=== PATIENT | female | born 1965 | race Caucasian/White ===

== ENCOUNTER → 2018-09-30 08:10 | Outpatient (CLI) | payer BC, SELFPAY ==
--- NOTE | 2018-09-30 08:14 | MM_ITS ---
MM Dig screening mamm BI w/CAD CAD Screening COMPARISON: None, previous mammograms are not available for review INDICATION: There is no personal or family history of breast cancer TECHNIQUE: Standard CC and MLO images were obtained. R2 CAD reviewed. FINDINGS: The breasts are composed primarily of fat with very minimal scattered fiber glandular densities in each breast. There are tiny benign-appearing nodular densities in each breast likely microcysts. There is no suspicious lesion in either breast and there are no suspicious microcalcifications. There are couple benign-appearing calcifications in each breast. IMPRESSION: Fatty type breast parenchyma no suspicious lesion seen BI-RADS Category: 2 Benign Finding(s) RECOMMENDED FOLLOW-UP: 1YR - 1 YEAR FOLLOW-UP (A letter has been sent to the patient regarding results of the study.)
== END ==
PROVIDERS: PCP Obstetrics & Gynecology; Visit Provider Obstetrics & Gynecology
DX: Z12.31 Encounter for screening mammogram for malignant neoplasm of breast (principal)
CPT/HCPCS: 77067

== ENCOUNTER → 2020-06-28 07:45 | Outpatient (CLI) | payer BC, SELFPAY ==
--- NOTE | 2020-06-28 07:45 | MM_ITS ---
PROCEDURE: MM DIG SCREENING MAMM BI W/CAD Digital Breast Tomosynthesis Included CLINICAL INDICATION: screening There is no personal or family history of breast cancer. COMPARISON: MG DIG MAMM-SCREEN MELISSA from 09/30/2018 TECHNIQUE: Standard CC and MLO images and 3D Tomosynthesis was obtained. R2 CAD reviewed. FINDINGS: Breasts are composed primarily of with minimal scattered fibroglandular densities each breast. There are stable small benign-appearing nodular densities in each breast. Are couple of benign-appearing microcalcifications just deep to the nipple right breast. No suspicious lesion in either breast no suspicious microcalcifications. IMPRESSION: Fatty type breast parenchyma with no suspicious lesions seen BI-RAD Category: 2 Benign Finding(s) FOLLOW-UP: 1YR 1 Year Follow-up (A letter has been sent to the patient regarding results of the study.) Dictated by: Dr. Bradford Taylor MD 06/28/2020 12:15 Dr. Bradford Taylor MD in [place] 06/28/2020 12:15
== END ==
PROVIDERS: PCP Family Medicine; Visit Provider Obstetrics & Gynecology
DX: Z12.31 Encounter for screening mammogram for malignant neoplasm of breast (principal)
CPT/HCPCS: 77063; 77067